=== PATIENT | female | born 1990 | race Two or more races ===

== ENCOUNTER 2019-02-08 21:41 | Emergency (ER) | payer SELFPAY ==
[~2019-02-08] VITALS: Ht 167.6 cm; Wt 91.0 kg
[2019-02-08 22:03] VITALS: BP 116/80
== END 2019-02-09 00:42 | disposition home or self-care (01) ==
LOC: ER 21:41
DX: M54.2 Cervicalgia (principal); Z32.02 Encounter for pregnancy test, result negative
CPT/HCPCS: 81025; 99283